=== PATIENT | male | born 1995 | race African-American/Black ===

== ENCOUNTER → 2018-09-23 | Emergency (ER) | payer SELFPAY ==
[~2018-09-23] VITALS: Ht 172.7 cm; Wt 90.7 kg
[~2018-09-23] MED LIST: Albuterol ud Inhalation HHN ONE; Etomidate 40mg/20ml Inj IV ONE; Ipratropium 0.02% Inh Soln 2.5ml UD HHN ONE; Ketorolac 30mg Inj IV ONE; Solu-MEDROL 125mg Inj ONE; fentaNYL 100 mcg/2 mL IV ONE
--- NOTE | 2018-09-23 15:51 | NUR ---
ED Nurse Note: PT WALKED IN TO ER TODAY FROM HOME. AOX4. PT C/O LEFT SHOULDER PAIN, 8/10 X 1 HOUR AGO AFTER "POPPING OUT" SHOULDER WHILE DRYING OFF AFTER SHOWER. CIRCULATION AND SENSATION INTACT, CAP REFILL <3 SECONDS, 5/5 HAND STRENGTH BUT LIMITED ROM AT SHOULDER. SKIN CLEAN, DRY, AND INTACT.
[2018-09-23 15:53] VITALS: BP 126/72
--- NOTE | 2018-09-23 16:24 | Emergency Room Report ---
History of Present Illness General Chief Complaint: Upper Extremity Injury Source: Patient Present Illness HPI Patient was in the shower moved his left arm in the unusual way over his head to towel off his back. He felt his shoulder dislocate that time. He complains of severe pain at this time. He's had several dislocations in the past. He is required to have procedural sedation to reduce the shoulder in the past. Pain is rated 8/10 and constant aching not radiating. Denies numbness. After the first time, surgery was recommended however, he refused. No major medical problems. He last ate last night. Allergies: Coded Allergies: No Known Allergies (Unverified , 09/23/18) Patient History Past Medical History: see triage record Social History: Denies: smoking Social History Narrative with sig other Reviewed Nursing Documentation: PMH: Agreed; PSxH: Agreed Nursing Documentation-PMH Past Medical History: No Stated History Review of Systems Constitutional: Denies: fever Respiratory: Denies: shortness of breath Cardiovascular: Denies: chest pain Gastrointestinal: Denies: nausea Musculoskeletal: Reports: see HPI Skin: Reports: see HPI Neurological: Reports: see HPI Physical Exam Vital Signs Date Time Temp Pulse Resp B/P (MAP) Pulse Ox O2 Delivery O2 Flow Rate FiO2 09/23/18 15:40 98.2 70 19 127/68 100 Room Air Sp02 EP Interpretation: reviewed, normal General Appearance: well appearing, no apparent distress Head: normocephalic, atraumatic Eyes: bilateral eye normal inspection, bilateral eye PERRL ENT: hearing grossly normal, normal voice, moist mucus membranes, other - Mallampati 2 Neck: full range of motion, supple Respiratory: lungs clear, normal breath sounds, no respiratory distress, speaking full sentences Cardiovascular #1: regular rate, rhythm Cardiovascular #2: 2+ radial (L) - Distal capillary refill normal Gastrointestinal: normal inspection Musculoskeletal: gait/station normal, other - Tenderness left shoulder and will not allow me to examine him Neurologic: alert, oriented x3, motor strength/tone normal, sensory intact Psychiatric: mood/affect normal Skin: no rash Procedures Joint Reduction Joint Reduction : Consent: Verbal Joint Reduction Site: shoulder (L) Procedural Sedation: Yes Reduction Attempts: One Pre-Procedure NV Exam: Yes Post-Procedure NV Exam: Yes Post Joint Reduction Film: joint reduced Patient Tolerated: Well Complications: None Procedural Sedation Consent: Verbal Pre-Sedation Assessment: Eval. Immed. Prior to Sed, Pre-proc Edu. done Airway Assessment (Malampati): II Heart: normal Lungs: normal Abdomen: normal Extremities: normal Procedures/Plans: Closed Reduction Plan for Moderate Sedation: Other - etomidate ASA Score: I Procedure Narrative After etomidate administered shoulder reduced with ease. Patient with some myoclonic jerking temporarily. No seizure activity. This abated quickly. Patient returned to normal mentation quickly after procedure. Start Time: 17:44 End Time: 17:50 Communication: No Apparent Limitation Mental Status: Awake Respiration: Unlabored Skin Condition: WNL Abdomen: WNL Nausea: NO Vomiting: NO Medical Decision Making Diagnostic Impression: Primary Impression: Shoulder dislocation Qualified Codes: S43.005A - Unspecified dislocation of left shoulder joint, initial encounter ER Course Patient presents with a probable left shoulders location. He needs a x-ray to confirm this. He'll be treated with analgesics. He'll require procedural sedation to reduce the shoulder. See procedure notes. Shoulder immobilizer applied by tech. Position excellent and neurovascular normal as checked by me. Patient returned to normal baseline and ambulatory. Discussed further care and follow-up with orthopedic doctor. Patient stable for outpatient observation and treatment. Other X-Ray Diagnostic Results Other X-Ray Diagnostic Results #1: X-Ray ordered: shoulder # of Views/Limited Vs Complete: 3 View Indication: Pain EP Interpretation: Yes Interpretation: no soft tissue swelling, no fractures, other - ant dislocation Impression: Other Electronically Signed by: Electronically signed by Ronnie Espino MD Other X-Ray Diagnostic Results #2: X-Ray ordered: post reduction # of Views/Limited Vs Complete: 1 View Indication: Other EP Interpretation: Yes Interpretation: no dislocation, no soft tissue swelling, no fractures Impression: No acute disease Electronically Signed by: Electronically signed by Ronnie Espino MD Last Vital Signs Date Time Temp Pulse Resp B/P (MAP) Pulse Ox O2 Delivery O2 Flow Rate FiO2 09/23/18 15:53 98.3 74 18 126/72 100 Room Air Status: improved Disposition: HOME, SELF-CARE Condition: Improved Ronnie Espino MD Sep 23, 2018 16:24
[2018-09-23 16:30] VITALS: BP 112/83
--- NOTE | 2018-09-23 16:30 | NUR ---
ED Nurse Note: received pt from fast track due to prosedure for closed Reduction of Left shoulder dislocation under moderate sedation. A/Ox4. IV inserted. Pain medications given. No s/s of distress. RA 100%.
--- NOTE | 2018-09-23 17:00 | NUR ---
ED Nurse Note: Consent received for closed reduction of left shoulder dislocation under moderate sedation. Pt veralized understanding about the reason for the procedure and risk factors of the procedure, signed.
--- NOTE | 2018-09-23 17:09 | Diagnostic Imaging Report ---
Indication: left shoulder pain Findings: 3 views of the left shoulder were obtained. There is anterior dislocation of the glenohumeral joint. No acute fracture seen. IMPRESSION: Dislocated shoulder
[2018-09-23 17:12] VITALS: BP 128/54
--- NOTE | 2018-09-23 18:38 | NUR ---
ED Nurse Note: Per Dr. Pugh, EKG does not need to be done for this patient.
--- NOTE | 2018-09-23 18:52 | NUR ---
ED Nurse Note: A/OX4. PT IS CLEARED BY DR. Ronnie FLORES INSTRUCTION AND PRESCRIPTIONS GIVEN, PT VERBALIZED UNDERSTANIDNG. IV/ID WRIST BAND REMOVED. ALL BELONGINGS TAKEN BY PT. PT AMBULATED OUT OF ER WITH STEADY GAIT. DENIES ANY PAIN AT THIS TIME. IMMOBLIZER PLACED ON THE LEFT SHOULDER. PT REPORTS THAT HIS FRIEND WILL BE PICKING HIM UP. NO S/S OF DISTRESS.
[2018-09-23 18:54] VITALS: BP 131/82
--- NOTE | 2018-09-24 08:44 | Diagnostic Imaging Report ---
Indication: Post reduction Technique: 3 views of the left shoulder Comparison: none Findings: Interim reduction of previously demonstrated left shoulder dislocation. No fracture demonstrated. Impression: Successful reduction of previously demonstrated left glenohumeral joint dislocation. No fracture demonstrated
== END | disposition home or self-care (01) ==
LOC: EMR 16:23
DX: S43.005A Unspecified dislocation of left shoulder joint, initial encounter (principal); X50.1XXA Overexertion from prolonged static or awkward postures, initial encounter; Y93.E1 Activity, personal bathing and showering; Y92.002 Bathroom of unspecified non-institutional (private) residence as the place of occurrence of the external cause
CPT/HCPCS: 23650; 73020; 73030; 96374; 96375; 99284; J2405; J2930; J3010